=== PATIENT | male | born 1945 | race Two or more races ===

== ENCOUNTER 2017-10-23 17:05 | Emergency (ER) | payer OTHER ==
[~2017-10-23] VITALS: Ht 170.2 cm; Wt 81.6 kg
[~2017-10-23 17:05] MED LIST: TOPROL XL50 M1 PO
[2017-10-23] MEDS ORDERED: COZAAR100 MG (17:31)
== END 2017-10-23 21:51 | disposition home or self-care (01) ==
LOC: ER 17:05
DX: J45.998 Other asthma (principal); J11.1 Influenza due to unidentified influenza virus with other respiratory manifestations

== ENCOUNTER 2017-11-02 18:43 | Emergency (ER) | payer OTHER ==
[~2017-11-02] VITALS: Ht 170.2 cm; Wt 79.4 kg
[~2017-11-02 18:43] MED LIST changes: +COZAAR100 MG
[2017-11-04] MEDS ORDERED: SYMBICORT 16010.2 GM IH (12:29)
[2017-11-04] MEDS ORDERED: THEO-24400 MG PO (12:29)
[2017-11-04] MEDS ORDERED: TUSSIONEX PENN115 ML PO (12:29)
== END 2017-11-04 12:50 | disposition home or self-care (01) ==
LOC: ER 18:43
DX: J44.1 Chronic obstructive pulmonary disease with (acute) exacerbation (principal); R09.02 Hypoxemia; I10 Essential (primary) hypertension; J11.1 Influenza due to unidentified influenza virus with other respiratory manifestations

== ENCOUNTER → 2017-12-23 | Emergency (ER) | payer OTHER ==
[~2017-12-23] VITALS: Ht 170.2 cm; Wt 79.8 kg
[~2017-12-23] MED LIST changes: +SYMBICORT 16010.2 GM IH; +THEO-24400 MG PO; +TUSSIONEX PENN115 ML PO
== END | disposition home or self-care (01) ==
LOC: ER 10:10
DX: J45.901 Unspecified asthma with (acute) exacerbation (principal); J11.1 Influenza due to unidentified influenza virus with other respiratory manifestations

== ENCOUNTER 2018-01-26 05:35 | Emergency (ER) | payer OTHER ==
[~2018-01-26] VITALS: Ht 170.2 cm; Wt 78.9 kg
== END 2018-01-26 18:23 | disposition home or self-care (01) ==
LOC: ER 05:35
DX: J44.9 Chronic obstructive pulmonary disease, unspecified (principal); J45.901 Unspecified asthma with (acute) exacerbation; J06.9 Acute upper respiratory infection, unspecified

== ENCOUNTER 2018-07-15 18:00 | Emergency (ER) | payer OTHER ==
[~2018-07-15] VITALS: Ht 170.2 cm; Wt 81.6 kg
== END 2018-07-16 14:11 | disposition home or self-care (01) ==
LOC: ER 18:00
DX: B34.9 Viral infection, unspecified (principal); E86.0 Dehydration; J11.1 Influenza due to unidentified influenza virus with other respiratory manifestations

== ENCOUNTER 2018-07-18 14:57 | Inpatient (IN) | payer OTHER ==
[~2018-07-18] VITALS: Ht 170.2 cm; Wt 80.7 kg
== END 2018-07-28 17:50 | disposition home or self-care (01) | DRG 813 ==
LOC: ER 14:57 → MEDJ 22:56
PROC: BW40ZZZ Ultrasonography of Abdomen (ICD-10-PCS; principal; 2018-07-19)
DX: D69.59 Other secondary thrombocytopenia (principal); N39.0 Urinary tract infection, site not specified; N17.8 Other acute kidney failure; A27 Leptospirosis; E86.0 Dehydration; K29.00 Acute gastritis without bleeding; I10 Essential (primary) hypertension; B34.9 Viral infection, unspecified; E80.6 Other disorders of bilirubin metabolism; B35.3 Tinea pedis; E87.6 Hypokalemia

== ENCOUNTER 2020-09-24 18:53 | Emergency (ER) | payer OTHER ==
[~2020-09-24] VITALS: Ht 170.2 cm; Wt 79.4 kg
[2020-09-25] MEDS ORDERED: ZITHROMAX500 MG PO (06:07)
[2020-09-25] MEDS ORDERED: TUSNEL LIQUID178 ML PO (06:07)
[2020-09-25] MEDS ORDERED: XOPENEX0.63 MG/3 IH (06:07)
[2020-09-25] MEDS ORDERED: MEDROLPACK PO (06:07)
== END 2020-09-25 06:10 | disposition home or self-care (01) ==
LOC: ER 18:53
DX: J20.9 Acute bronchitis, unspecified (principal); R06.02 Shortness of breath; Z20.828 Contact with and (suspected) exposure to other viral communicable diseases

== ENCOUNTER → 2022-03-22 | Emergency (ER) | payer OTHER ==
[~2022-03-22] VITALS: Ht 170.2 cm; Wt 79.8 kg
[~2022-03-22] MED LIST changes: +MEDROLPACK PO; +TUSNEL LIQUID178 ML PO; +XOPENEX0.63 MG/3 IH; +ZITHROMAX500 MG PO
== END | disposition home or self-care (01) ==
LOC: ER 16:33
DX: S20.219A Contusion of unspecified front wall of thorax, initial encounter (principal); W18.30XA Fall on same level, unspecified, initial encounter; Y93.9 Activity, unspecified; Y92.019 Unspecified place in single-family (private) house as the place of occurrence of the external cause; Y99.9 Unspecified external cause status